=== PATIENT | female | born 1955 | race Two or more races ===

== ENCOUNTER → 2017-10-29 11:30 | Outpatient (CLI) | payer OTHER ==
[~2017-10-29 11:30] MED LIST: CIPRO500 MG PO; GLUCOPHAGE XR500 MG PO; LIBRAX CAPSULE1 CA1 PO; Levsin/Sl 0.125 MG TAB.SUBL SL; OMEPRAZOLE40 MG PO; PRILOSEC10 MG PO; SYMAX0.125 MG/T PO; SYNTHROID100 MCG PO; TRAM1TAB PO
== END | disposition home or self-care (01) ==
LOC: RAD 11:30
DX: M50.90 Cervical disc disorder, unspecified, unspecified cervical region (principal); E11.43 Type 2 diabetes mellitus with diabetic autonomic (poly)neuropathy; M60.9 Myositis, unspecified; M79.1 Myalgia; M79.7 Fibromyalgia; M41.30 Thoracogenic scoliosis, site unspecified; M51.36 Other intervertebral disc degeneration, lumbar region

== ENCOUNTER → 2018-07-30 09:24 | Outpatient (CLI) | payer OTHER | END | disposition home or self-care (01) | LOC: LAB 09:24 | DX: R10.84 Generalized abdominal pain (principal); Z51.81 Encounter for therapeutic drug level monitoring ==

== ENCOUNTER 2018-07-30 20:41 | Emergency (ER) | payer OTHER ==
[~2018-07-30] VITALS: Ht 162.6 cm; Wt 79.8 kg
== END 2018-07-31 | disposition home or self-care (01) ==
LOC: ER 20:41
DX: K58.8 Other irritable bowel syndrome (principal)

== ENCOUNTER 2018-08-26 07:23 | Outpatient (CLI) | payer OTHER | END 2018-08-26 11:28 | disposition home or self-care (01) | LOC: NUCLEAR 07:23 | DX: E04.2 Nontoxic multinodular goiter (principal) | CPT/HCPCS: 78013; A9512 ==

== ENCOUNTER → 2018-08-28 | Outpatient (CLI) | payer OTHER | END | disposition home or self-care (01) | LOC: NUCLEAR 08:00 | DX: E21.3 Hyperparathyroidism, unspecified (principal) | CPT/HCPCS: 78070; A9500 ==

== ENCOUNTER 2019-05-19 07:15 | Outpatient (CLI) | payer OTHER | END 2019-05-19 17:00 | disposition home or self-care (01) | LOC: SONOGRAMA 07:15 → MAMO-SONO 13:45 → SONOGRAMA 17:00 | DX: R10.84 Generalized abdominal pain (principal) ==

== ENCOUNTER 2019-06-14 09:05 | Outpatient (CLI) | payer OTHER | END 2019-06-14 13:50 | disposition home or self-care (01) | LOC: TOM 09:05 | DX: J41.0 Simple chronic bronchitis (principal) ==

== ENCOUNTER 2019-10-07 16:53 | Emergency (ER) | payer OTHER ==
[~2019-10-07] VITALS: Ht 162.6 cm; Wt 81.6 kg
[2019-10-07] MEDS ORDERED: ZESTRIL2.5 MG PO (17:51)
[2019-10-07] MEDS ORDERED: FLONASE ALLERG9.9 ML (17:52)
== END 2019-10-07 22:51 | disposition home or self-care (01) ==
LOC: ER 16:53
DX: R51 Headache (principal)

== ENCOUNTER 2020-01-31 07:24 | Outpatient (CLI) | payer OTHER ==
[~2020-01-31 07:24] MED LIST changes: +FLONASE ALLERG9.9 ML; +ZESTRIL2.5 MG PO
== END 2020-01-31 07:33 | disposition home or self-care (01) ==
LOC: TOM 07:24
PROVIDERS: ATTEND Surgery
DX: R10.84 Generalized abdominal pain (principal)

== ENCOUNTER 2020-04-19 14:21 | Inpatient (IN) | payer OTHER ==
[~2020-04-19] VITALS: Ht 162.6 cm; Wt 79.4 kg
[2020-04-27] MEDS ORDERED: LIBRAX PO (09:32)
[2020-04-27] MEDS ORDERED: SINGULAIR10 MG PO (09:33)
[2020-04-27] MEDS ORDERED: [UNRECOGNIZED DRUG - OTHER] PO (09:33)
[2020-04-27] MEDS ORDERED: OMEPRAZ PO (09:34)
[2020-04-27] MEDS ORDERED: [UNRECOGNIZED DRUG - OTHER] PO (09:34)
[2020-04-27] MEDS ORDERED: TRAM1TAB98 PO (09:35)
[2020-04-27] MEDS ORDERED: GABAPENTIN100 M2 PO (09:36)
[2020-04-27] MEDS ORDERED: OMEGA PO (09:37)
[2020-04-27] MEDS ORDERED: VITAMIN D310 MCG/1 M PO (09:39)
[2020-05-04] MEDS ORDERED: OMEPRAZOLE MAGN20 MG PO (07:50)
[2020-05-04] MEDS ORDERED: OMEGA 3-6-9 CO400 MG (07:53)
[2020-05-04] MEDS ORDERED: ZANAFLEX4 MG PO (07:54)
[2020-05-04] MEDS ORDERED: TRAM1TAB98 PO (08:02)
[2020-05-04] MEDS ORDERED: AZELASTINE137 MCG/0. (08:03)
[2020-05-04] MEDS ORDERED: LEVSIN0.125 MG PO (08:10)
[2020-05-05] MEDS ORDERED: MIRALAX17 GM PO (15:16)
[2020-05-05] MEDS ORDERED: TYLENOL ARTHRI650 MG PO (15:16)
[2020-05-05] MEDS ORDERED: ULTRAM50 MG PO (15:16)
[2020-05-05] MEDS ORDERED: NEURONTIN300 MG PO (15:16)
== END 2020-05-06 11:40 | disposition home or self-care (01) | DRG 355 ==
LOC: O/R 05-04 06:10 → SURH 05-04 06:10
PROVIDERS: ADMIT Surgery; ATTEND Surgery
PROC: 0WQF4ZZ Repair Abdominal Wall, Percutaneous Endoscopic Approach (ICD-10-PCS; 2020-05-04)
PROC: 0JX83ZZ Transfer Abdomen Subcutaneous Tissue and Fascia, Percutaneous Approach (ICD-10-PCS; 2020-05-04)
PROC: 0WUF4JZ Supplement Abdominal Wall with Synthetic Substitute, Percutaneous Endoscopic Approach (ICD-10-PCS; principal; 2020-05-04 07:00)
DX: K43.0 Incisional hernia with obstruction, without gangrene (principal); K42.0 Umbilical hernia with obstruction, without gangrene

== ENCOUNTER 2024-04-29 09:08 | Emergency (ER) | payer OTHER ==
[~2024-04-29] VITALS: Ht 162.6 cm; Wt 72.6 kg
[~2024-04-29 09:08] MED LIST changes: +AZELASTINE137 MCG/0.; +GABAPENTIN100 M2 PO; +LEVSIN0.125 MG PO; +LIBRAX PO; +MIRALAX17 GM PO; +NEURONTIN300 MG PO; +OMEGA 3-6-9 CO400 MG; +OMEGA PO; +OMEPRAZ PO; +OMEPRAZOLE MAGN20 MG PO; +SINGULAIR10 MG PO; +TRAM1TAB98 PO; +TYLENOL ARTHRI650 MG PO; +ULTRAM50 MG PO; +VITAMIN D310 MCG/1 M PO; +ZANAFLEX4 MG PO; +[UNRECOGNIZED DRUG - OTHER] PO; +[UNRECOGNIZED DRUG - OTHER] PO
[2024-04-29] MEDS ORDERED: ACETAMINOPHEN 650 MG SUPP.RECT RECTAL ONE ×2 (10:15→10:23)
[2024-04-29] MEDS ORDERED: ORPHENADRINE CITRATE 30 MG/ML AMPUL IM ONE (10:15)
[2024-04-29] MEDS ORDERED: ORPHENADRINE CITRATE 30 MG/ML AMPUL ONE (10:23)
[2024-04-29] MEDS ORDERED: ACETAMINOPHEN 500 MG GEL..CAP PO ONE (10:30)
[2024-04-29 11:00] LABS: HEMATOCRIT 38.5 % (36.0-45.00); HEMOGLOBIN 12.6 g/dL (12.0-15.00); MEAN CELL VOLUME 78.7 fL (80.00-100.00); MEAN CORPUSCULAR HEMOGLOBIN 25.8 pg (27.00-32.0); MEAN CORPUSCULAR HGB CONC 32.8 g/dl (32.0-36.0); PLATELET COUNT 263 K/uL (150-450); RED BLOOD COUNT 4.89 M/uL (4.00-6.00); RED CELL DISTRIBUTION WIDTH 14.5 % (11.5-14.5)
[2024-04-29 11:01] LABS: CALCIUM 9.6 mg/dL (8.5-10.1); CREATININE SERUM 0.7 mg/dL (0.55-1.02); GFR 82.72; POTASSIUM 5.11 mEq/L (3.5-5.1)
== END 2024-04-29 14:24 | disposition home or self-care (01) ==
LOC: ER 09:10
PROVIDERS: General Practice
DX: I87.2 Venous insufficiency (chronic) (peripheral) (principal); Z88.0 Allergy status to penicillin; Z88.5 Allergy status to narcotic agent; Z88.6 Allergy status to analgesic agent
CPT/HCPCS: 36415; 73560; 93971; 96372; 99284; J2360